=== PATIENT | female | born 1965 | race Caucasian/White ===

== ENCOUNTER → 2016-10-20 | Outpatient (CLI) | payer BC ==
[~2016-10-20] MED LIST: ACET325T96 PO; CALCTAB5 PO; CHOL2000 PO; CYCL0.052 OP; ESTR1CRE TOP; FAMO10TA10 PO; FEXO5TAB2 PO; IBUP-1277 PO; LEVO100T7 PO; LEVO75TA5 PO; METR0.754 TOP; MUCINEX PO; MULT-506 PO; NAPR-943 PO; NYSTCRE32 TOP; PSEU60TA80 PO; SALI1SPR3 TOP
--- NOTE | 2016-10-20 11:34 | DIAGNOSTIC IMAGING REPORT ---
SI JOINTS 3 OR MORE VIEWS CLINICAL HISTORY: BACK PAIN COMPARISON STUDY: No previous studies for comparison. FINDINGS: 3 views are provided for interpretation. No fractures are visualized. There is no evidence of SI joint fusion. There is a transitional vertebra on the left with fusion of the left transitional vertebra transverse process with the sacrum. There are no erosive changes. No fractures are visualized. IMPRESSION: 1. Transitional vertebra 2. No conventional radiographic evidence of an inflammatory sacroiliitis Electronically signed by: Jake Barber M.D. 10/20/2016 11:32 AM Dictated Date/Time: 10/20/2016 11:31 AM
--- NOTE | 2016-10-20 12:06 | DIAGNOSTIC IMAGING REPORT ---
L-SPINE MIN 4 VIEWS ROUTINE CLINICAL HISTORY: Low back pain. Osteoporosis. COMPARISON: None FINDINGS: A transitional vertebra is noted at the lumbosacral junction. For purposes of numbering on this exam, this is designated as S1 which is partially lumbarized. There is mild leftward curvature of the lumbar spine. Vertebral body heights are maintained. There is no acute fracture. Mild multilevel degenerative disc disease and facet arthrosis is present. IMPRESSION: 1. No acute lumbar spine fracture or subluxation identified. 2. Minimal leftward curvature of the lumbar spine. 3. Transitional vertebra at the lumbosacral junction. Please see above numbering scheme of the lumbar spine. 4. Mild multilevel degenerative disc disease and facet arthrosis. Electronically signed by: Timbo Bishop M.D. 10/20/2016 12:04 PM Dictated Date/Time: 10/20/2016 12:02 PM
== END | disposition home or self-care (01) ==
LOC: C.RAD 10:04
DX: M81.0 Age-related osteoporosis without current pathological fracture (principal); E03.9 Hypothyroidism, unspecified

== ENCOUNTER → 2016-10-20 | Outpatient (CLI) | payer BC ==
--- NOTE | 2016-10-21 13:25 | MAMMOGRAPHY REPORT ---
BILATERAL DIGITAL SCREENING MAMMOGRAM TOMOSYNTHESIS WITH CAD: 10/20/2016 CLINICAL HISTORY: Routine screening. Patient has no complaints. TECHNIQUE: Breast tomosynthesis in addition to standard 2D mammography was performed. Current study was also evaluated with a Computer Aided Detection (CAD) system. COMPARISON: Comparison is made to exams dated: 10/16/2015 mammogram, 08/31/2013 mammogram, 08/24/2012 mammogram, 08/18/2011 mammogram, 08/14/2010 mammogram, and 08/13/2009 mammogram - [facility]. BREAST COMPOSITION: The tissue of both breasts is heterogeneously dense, which may obscure small ma sses. FINDINGS: There are stable asymmetries bilaterally. Benign round and rim calcifications are stable in each breast. No new suspicious mass, architectural distortion or cluster of microcalcifications is seen. IMPRESSION: ACR BI-RADS CATEGORY 1: NEGATIVE There is no mammographic evidence of malignancy. A 1 year screening mammogram is recommended. The p atient will receive written notification of the results. Approximately 10% of breast cancers are not detected with mammography. A negative mammographic repor t should not delay biopsy if a clinically suggestive mass is present. Radha Mike M.D. ay/:10/20/2016 17:06:30 Telephone Technician: Theresa JOAQUIN(Haresh)([place]), [facility] letter sent: Normal 1/2 BI-RADS Code: ACR BI-RADS Category 1: Negative
== END | disposition home or self-care (01) ==
LOC: C.MAMM 09:19
PROVIDERS: ATTEND Obstetrics & Gynecology
DX: Z12.31 Encounter for screening mammogram for malignant neoplasm of breast (principal)

== ENCOUNTER → 2016-10-22 | Outpatient (CLI) | payer BC | END | disposition home or self-care (01) | LOC: C.PAPS 10:11 | PROVIDERS: ATTEND Obstetrics & Gynecology | DX: Z01.419 Encounter for gynecological examination (general) (routine) without abnormal findings (principal) ==

== ENCOUNTER → 2016-11-03 | Outpatient (CLI) | payer BC ==
[2016-11-03 12:29] LABS: CALCIUM 8.8 mg/dl (8.5-10.1); CREATININE 0.75 mg/dl (0.60-1.20)
[2016-11-03 16:37] LABS: CALCIUM URINE 5.6 mg/dl
[2016-11-04 17:06] LABS: ALBUMIN 4.1 G/DL (3.8-4.8); GAMMA GLOBULIN 0.6 G/DL (0.8-1.7); TOTAL PROTEIN 6.3 G/DL (6.2-8.3)
== END | disposition home or self-care (01) ==
LOC: C.LAB1850 10:41
PROVIDERS: ATTEND Internal Medicine Rheumatology
DX: M81.0 Age-related osteoporosis without current pathological fracture (principal); E61.8 Deficiency of other specified nutrient elements; E55.9 Vitamin D deficiency, unspecified

== ENCOUNTER → 2017-02-18 | Outpatient (CLI) | payer BC ==
[~2017-02-18] MED LIST changes: -FAMO10TA10 PO; +FAMO10TA16 PO
[2017-02-18 12:53] LABS: FERRITIN 447.1 ng/ml (8.0-388.0); THYROID STIMULATING HORMONE 1.19 uIu/ml (0.300-4.500)
== END | disposition home or self-care (01) ==
LOC: C.LAB 09:59
DX: E03.9 Hypothyroidism, unspecified (principal); E61.1 Iron deficiency; M81.0 Age-related osteoporosis without current pathological fracture

== ENCOUNTER → 2017-02-26 | Outpatient (CLI) | payer BC | END | disposition home or self-care (01) | LOC: C.LABSPEC 11:21 | DX: R30.0 Dysuria (principal) ==

== ENCOUNTER → 2017-03-09 | Outpatient (CLI) | payer BC | END | disposition home or self-care (01) | LOC: C.LAB1850 09:59 | PROVIDERS: ATTEND Internal Medicine Rheumatology | DX: M81.0 Age-related osteoporosis without current pathological fracture (principal); E61.8 Deficiency of other specified nutrient elements; E55.9 Vitamin D deficiency, unspecified ==

== ENCOUNTER → 2017-03-13 | Outpatient (CLI) | payer BC ==
[2017-03-13 09:40] LABS: C-REACTIVE PROTEIN < 0.29 mg/dl (0-0.29); RHEUMATOID FACTOR < 10.0 U/mL (0-15)
[2017-03-13 11:24] LABS: LYME DISEASE AB IGG NEG (NEG); LYME DISEASE AB IGM NEG (NEG)
[2017-03-18 20:56] LABS: HLA-B27** TC 528X NEGATIVE (NEGATIVE)
== END | disposition home or self-care (01) ==
LOC: C.LAB 08:34
DX: M19.90 Unspecified osteoarthritis, unspecified site (principal)

== ENCOUNTER → 2017-04-06 | Outpatient (CLI) | payer BC ==
[~2017-04-06] MED LIST changes: +FAMO10TA10 PO; -FAMO10TA16 PO
--- NOTE | 2017-04-06 11:49 | DIAGNOSTIC IMAGING REPORT ---
LEFT KNEE 3 VIEWS CLINICAL HISTORY: 52 years-old Female presenting with LEFT KNEE PAIN. TECHNIQUE: Frontal, lateral, and sunrise views of the left knee were obtained. COMPARISON: None. FINDINGS: No acute fracture or malalignment. Transverse ring of sclerosis at the distal left femoral diametaphysis, likely normal variation. No significant degenerative change including at the patellofemoral articulation. No knee joint effusion. Soft tissues within normal limits. IMPRESSION: 1. No acute osseous injury or significant degenerative change. Electronically signed by: Jeferson Desai 04/06/2017 11:48 AM Dictated Date/Time: 04/06/2017 11:43 AM
== END | disposition home or self-care (01) ==
LOC: C.RAD1850 10:10
PROVIDERS: ATTEND Internal Medicine Rheumatology
DX: M25.562 Pain in left knee (principal); E55.9 Vitamin D deficiency, unspecified

== ENCOUNTER → 2017-09-30 | Outpatient (CLI) | payer OTHER ==
[~2017-09-30] MED LIST changes: +ACET-1693 PO; -ACET325T96 PO; -FAMO10TA10 PO; +FAMO10TA16 PO; +SALI-3 TOP; -SALI1SPR3 TOP
== END | disposition home or self-care (01) ==
LOC: C.LAB1850 11:04
PROVIDERS: ATTEND Internal Medicine Rheumatology
DX: E55.9 Vitamin D deficiency, unspecified (principal)

== ENCOUNTER → 2017-10-21 | Outpatient (CLI) | payer OTHER ==
[~2017-10-21] MED LIST changes: -ACET-1693 PO; +ACET325T96 PO; -SALI-3 TOP; +SALI1SPR3 TOP
--- NOTE | 2017-10-21 15:40 | MAMMOGRAPHY REPORT ---
BILATERAL DIGITAL SCREENING MAMMOGRAM TOMOSYNTHESIS WITH CAD: 10/21/2017 CLINICAL HISTORY: Routine screening. TECHNIQUE: Breast tomosynthesis in addition to standard 2D mammography was performed. Current study was also evaluated with a Computer Aided Detection (CAD) system. COMPARISON: Comparison is made to exams dated: 10/20/2016 mammogram, 10/16/2015 mammogram, 10/10/2014 m ammogram, 08/31/2013 mammogram, 08/24/2012 mammogram, and 08/18/2011 mammogram - [facility]. BREAST COMPOSITION: The tissue of both breasts is heterogeneously dense, which may obscure small mas ses. FINDINGS: No suspicious masses, calcifications, or areas of architectural distortion are noted in ei ther breast. There has been no significant interval change compared to prior exams. IMPRESSION: ACR BI-RADS CATEGORY 1: NEGATIVE There is no mammographic evidence of malignancy. A 1 year screening mammogram is recommended. The pa tient will receive written notification of the results. Approximately 10% of breast cancers are not detected with mammography. A negative mammographic report should not delay biopsy if a clinically suggestive mass is present. Katrin Hagen M.D. /:10/21/2017 10:00:37 Cokeman: Leola JOAQUIN(Haresh)(M), [facility] letter sent: Normal 1/2 BI-RADS Code: ACR BI-RADS Category 1: Negative
== END | disposition home or self-care (01) ==
LOC: C.MAMM 09:32
PROVIDERS: ATTEND Obstetrics & Gynecology
DX: Z12.31 Encounter for screening mammogram for malignant neoplasm of breast (principal)

== ENCOUNTER → 2017-11-05 | Outpatient (CLI) | payer OTHER ==
[~2017-11-05] MED LIST changes: +ACET-1693 PO; -ACET325T96 PO
== END | disposition home or self-care (01) ==
LOC: C.PAPS 09:05
PROVIDERS: ATTEND Obstetrics & Gynecology
DX: Z01.419 Encounter for gynecological examination (general) (routine) without abnormal findings (principal); N95.8 Other specified menopausal and perimenopausal disorders

== ENCOUNTER → 2017-12-21 | Outpatient (CLI) | payer OTHER ==
--- NOTE | 2017-12-21 12:14 | DIAGNOSTIC IMAGING REPORT ---
CHEST 2 VIEWS ROUTINE CLINICAL HISTORY: Palpitations. COMPARISON STUDY: No previous studies for comparison. FINDINGS: Lung volumes are normal. No pneumothorax or pleural effusion is noted. There is no consolidation or evidence for pulmonary edema. Cardiomediastinal silhouette is unremarkable. IMPRESSION: No acute cardiopulmonary findings. Electronically signed by: Timbo Bishop M.D. 12/21/2017 12:13 PM Dictated Date/Time: 12/21/2017 12:12 PM
== END | disposition home or self-care (01) ==
LOC: C.CPL 11:05
DX: R00.2 Palpitations (principal)